=== PATIENT | male | born 1985 | race Caucasian/White ===

== ENCOUNTER 2017-07-12 15:43 | Emergency (ER) | payer MEDICAID ==
[~2017-07-12] VITALS: Ht 165.1 cm; Wt 69.0 kg
[2017-07-12] MEDS ORDERED: HYDROCODONE/ACETAMINOPHEN 5/325MG TABLET PO ONE (16:15)
[2017-07-12] MEDS ORDERED: KETOROLAC 60MG/2ML VIAL IM ONE (19:15)
[2017-07-12 20:08] VITALS: BP 106/74
== END 2017-07-12 20:11 | disposition home or self-care (01) ==
LOC: ER 16:51
DX: S43.102A Unspecified dislocation of left acromioclavicular joint, initial encounter (principal); Y93.66 Activity, soccer
CPT/HCPCS: 73030; 96372; 99284; C1893; J1885; Z7610; A4565

== ENCOUNTER 2020-05-30 17:15 | Emergency (ER) | payer MEDICAID ==
[~2020-05-30] VITALS: Ht 165.1 cm; Wt 85.0 kg
[2020-05-30 20:16] VITALS: BP 137/78
== END 2020-05-30 20:17 | disposition home or self-care (01) ==
LOC: ER 17:15
DX: S09.8XXA Other specified injuries of head, initial encounter (principal); W22.8XXA Striking against or struck by other objects, initial encounter; Y93.9 Activity, unspecified; Y92.9 Unspecified place or not applicable
CPT/HCPCS: 99281